=== PATIENT | female | born 1990 | race Caucasian/White ===

== ENCOUNTER 2017-09-04 12:55 | Emergency (ER) | payer BC ==
[~2017-09-04] VITALS: Ht 157.5 cm; Wt 60.5 kg
[2017-09-04 13:01] VITALS: TEMP 36.7; Ht 157.5 cm; Wt 60.5 kg
[2017-09-04] MEDS ORDERED: OXYCODONE HCL IR 5 MG TAB (IMMEDIATE RELEASE) PO STA (13:19)
[2017-09-04] MEDS ORDERED: ONDANSETRON 4MG OD TAB PO ONE (13:30)
--- NOTE | 2017-09-04 13:47 | DIAGNOSTIC IMAGING REPORT ---
HEAD WITHOUT CONTRAST (CT) CLINICAL HISTORY: 27 years-old Female with fall/head injury. Acute head injury with headache and dizziness. TECHNIQUE: Multiple axial CT images of the head were obtained without contrast. A dose lowering technique was utilized adhering to the principles of ALARA. CT DOSE: 537.48 mGy.cm COMPARISON: None. FINDINGS: No acute intracranial hemorrhage, midline shift, intracranial mass, hydrocephalus, territorial ischemia or abnormal extra-axial collection. The calvarium is intact. The paranasal sinuses, mastoid air cells, and middle ear cavities are clear. IMPRESSION: 1. No acute intracranial abnormality. 2. No calvarial fracture. The above report was generated using voice recognition software. It may contain grammatical, syntax or spelling errors. Electronically signed by: Vladimir Fox M.D. 09/04/2017 1:46 PM Dictated Date/Time: 09/04/2017 1:43 PM
[2017-09-04] MEDS ORDERED: MECLIZINE HCL 25 MG TAB PO STA (13:55)
[2017-09-04] MEDS ORDERED: MECL1TAB42 PO (14:38)
--- NOTE | 2017-09-04 14:39 | EMERGENCY ROOM VISIT NOTE ---
History First contact with patient: 13:14 Chief Complaint: HEAD INJURY (MINOR) Stated Complaint: HAYES, DIZZY History of Present Illness The patient is a 27 year old female who presents to the Emergency Room with complaints of head injury. The patient states that she was on a bar tour in [facility] last night. She states they were at their last bar when she tripped over her shoe and fell backwards striking the right side of her head on a metal bar. Patient states that she "just didn't feel right after this occurred. She also had projectile vomiting later that night. She denies any loss of consciousness or visual changes. She does admit to some slight dizziness. The patient states when she woke up this morning the headache was worse and is more generalized over the entire right side of her head. She does palpate a small lump on the right side of her head. The patient denies any short-term memory loss. The patient has had concussions in the past. She continues to be nauseated. She rates the headache at a 5 out of 10. She did try and take some Excedrin and drink a lot of water without any relief of the headache. Review of Systems 10 system review was performed and was negative unless stated otherwise history of present illness. Past Medical/Surgical History Tonsillectomy, concussion Social History Smoking Status: Never Smoker Alcohol Use: occasionally Drug Use: none Marital Status: single Housing Status: lives with family Occupation Status: employed Current/Historical Medications No Active Prescriptions or Reported Meds Physical Exam Vital Signs Date Time Temp Pulse Resp B/P (MAP) Pulse Ox O2 Delivery O2 Flow Rate FiO2 09/04/17 13:01 36.7 70 18 153/83 99 Room Air Physical Exam GENERAL: 27-year-old white female appears in no acute distress. MENTAL Status: Alert and oriented 3. HEAD: Palpable small lump noted on the posterior right parietal region. The patient is tender to palpation over the entire parietal region extending to the temporal region on the right. Left side is nontender. EYES: PERRLA. EOMs intact. EARS: Canals clear. TMs without hemotympanum NECK: Supple, no lymphadenopathy noted. No carotid bruits noted. LUNGS: Clear auscultation without wheezes rales or rhonchi. CARDIAC: Regular rate and rhythm without murmur. Pulses is full and equal throughout. CERVICAL SPINE: Patient is nontender to palpation over the spinous processes in the paravertebral regions bilaterally. Full range of motion. NEURO:Cranial nerves two through 12 intact. Cerebellar function intact with [id number]. Fine motor intact with alternating finger motions. Medical Decision & Procedures ER Provider Diagnostic Interpretation: HEAD WITHOUT CONTRAST (CT) CLINICAL HISTORY: 27 years-old Female with fall/head injury. Acute head injury with headache and dizziness. TECHNIQUE: Multiple axial CT images of the head were obtained without contrast. A dose lowering technique was utilized adhering to the principles of ALARA. CT DOSE: 537.48 mGy.cm COMPARISON: None. FINDINGS: No acute intracranial hemorrhage, midline shift, intracranial mass, hydrocephalus, territorial ischemia or abnormal extra-axial collection. The calvarium is intact. The paranasal sinuses, mastoid air cells, and middle ear cavities are clear. IMPRESSION: 1. No acute intracranial abnormality. 2. No calvarial fracture. The above report was generated using voice recognition software. It may contain grammatical, syntax or spelling errors. Electronically signed by: Vladimir Fox M.D. 09/04/2017 1:46 PM Medications Administered Medications (Trade) Dose Ordered Sig/Favian Route Start Time Stop Time Status Last Admin Dose Admin Ondansetron HCl (Zofran Odt) 4 mg ONE ONCE PO 09/04/17 13:30 09/04/17 13:31 DC 09/04/17 13:27 4 MG Oxycodone HCl (Roxicodone Immediate Rel Tab) 5 mg NOW STAT PO 09/04/17 13:19 09/04/17 13:21 DC 09/04/17 13:26 5 MG Meclizine HCl (Antivert Tab) 25 mg NOW STAT PO 09/04/17 13:55 09/04/17 13:56 DC 09/04/17 14:06 25 MG ED Course The patient was evaluated. Patient's EMR medication list were reviewed. Urine dip was negative. The patient was given Zofran 4 mg ODT for nausea and OxyIR 5 mg by mouth for headache. CT the head was ordered interpreted by the radiologist as above without any acute findings. The patient was reevaluated and stated that her headache was better but she felt very dizzy. The patient was given Antivert 25 mg by mouth. The patient was reevaluated was feeling better. The patient was discharged home in stable condition. Medical Decision Differential includes: Acute intracranial bleed, trauma, meningitis, encephalitis, increased intracranial pressure, mass or mass effect, facial or dental infection, temporal arteritis, CVA, TIA, acute hypertensive emergency, sinusitis, carbon monoxide exposure. [facility] Drug Monitoring Program Search Results: patient reviewed within database Head Trauma GCS Score: 15 Medication Reconcilliation Current Medication List: was personally reviewed by me Blood Pressure Screening Patient's blood pressure: Elevated blood pressure Blood pressure disposition: Elevated BP felt to be situational Impression Primary Impression: Concussion Departure Information Dispostion Home / Self-Care Condition GOOD Prescriptions Meclizine Hcl (MECLIZINE HCL) 25 Mg Tab 1 TAB PO TID Y for Dizziness or Vertigo for 10 Days, #30 TAB Prov: Keiry Boone PA-C 09/04/17 Referrals Randall Gonzalez M.D. (PCP) Forms HOME CARE DOCUMENTATION FORM, IMPORTANT VISIT INFORMATION Patient Instructions ED Concussion, [employer] Additional Instructions Avoid any physical contact sports for 2 weeks. Tylenol as needed for headache. Take Antivert as needed for dizziness and nausea. Avoid staying in any ear screens are TVs for any extended period of time for the next 4-5 days. Stay well-hydrated. If symptoms persist or worsen, return to ER. Problem Qualifiers Primary Impression: Concussion Encounter type: initial encounter Loss of consciousness presence/duration: without LOC Qualified Codes: S06.0X0A - Concussion without loss of consciousness, initial encounter
[2017-09-04 14:46] VITALS: BP 136/79; PULSE 68; O2SAT 96
== END 2017-09-04 14:44 | disposition home or self-care (01) ==
LOC: C.EDB 12:57 → C.EDD 14:44
DX: S06.0X0A Concussion without loss of consciousness, initial encounter (principal); W18.09XA Striking against other object with subsequent fall, initial encounter; Z87.820 Personal history of traumatic brain injury; Z90.89 Acquired absence of other organs